=== PATIENT | female | born 1980 | race Caucasian/White ===

== ENCOUNTER → 2016-10-20 | Outpatient (CLI) | payer OTHER ==
[2016-10-20 12:49] LABS: BLOOD UREA NITROGEN 11 mg/dL (7-18)
[2016-10-20 13:00] LABS: ASPARTATE AMINO TRANSFERASE 8 U/L (15-37)
[2016-10-21 11:42] LABS: RAPID PLASMA REAGIN Nonreactive (Nonreactive); RHEUMATOID FACTOR SCREEN NEGATIVE (NEGATIVE)
[2016-10-21 12:06] LABS: SJOGREN'S SS-A AB <0.2 AI (0.0-0.9)
[2016-10-21 16:11] LABS: ANA SCREEN NEGATIVE (Negative)
== END | disposition home or self-care (01) ==
LOC: LAB 12:15
PROVIDERS: ATTEND Registered Nurse
DX: G43.711 Chronic migraine without aura, intractable, with status migrainosus (principal)
CPT/HCPCS: 36415; 80053; 82248; 83519; 84100; 84439; 84443; 85025; 85651; 86038; 86235; 86430; 86592